=== PATIENT | female | born 1950 | race Hispanic/Latino ===

== ENCOUNTER 2017-10-23 08:02 | Day surgery (SDC) | payer MEDICARE ==
[2017-10-23 09:06] VITALS: BMI 22.3
[2017-10-23] MEDS ORDERED: Lactated Ringer's 500 ML IV ONE (09:09)
[2017-10-23] MEDS ORDERED: Propofol 10 mg/ml Inj (20 ML) ONE (11:48)
[2017-10-23 13:28] VITALS: O2SAT 99
[2017-10-23 13:29] VITALS: BP 100/60; PULSE 52; RESP 13; TEMP 96.9
== END 2017-10-23 13:30 | disposition home or self-care (01) ==
LOC: H.ENDO 08:02
PROVIDERS: ATTEND Internal Medicine Gastroenterology
DX: Z12.11 Encounter for screening for malignant neoplasm of colon (principal); K64.0 First degree hemorrhoids
CPT/HCPCS: 45378; J2001; J2704; J7120